=== PATIENT | female | born 1955 | race Caucasian/White ===

== ENCOUNTER 2019-03-17 20:07 | Observation (INO) ==
[2019-03-17] MEDS ORDERED: Ondansetron 4 MG/2 ML VIAL IVP STA (20:26)
[2019-03-17] MEDS ORDERED: 0.9 % Sodium Chloride 1,000 ML IVC STA (20:26)
[2019-03-17 21:11] LABS: Bilirubin,Urine Small (Negative); Blood,Urine Negative (Negative); Clarity,Urine Cloudy (Clear); Color,Urine Yellow (Yellow); Glucose,Urine (UA) Normal (Normal); Ketones,Urine Negative (Negative); Leukocyte Esterase,Urine Small (Negative); Nitrite,Urine Negative (Negative); PH,Urine 6.5 pH Units (5.0-8.0); Protein,Urine Negative (Neg-Trace); Specific Gravity,Urine 1.024 (1.010-1.025); Urobilinogen,Urine Normal (Normal)
[2019-03-17 21:14] LABS: Basophils # 0.1 K/mcL (0.0-0.2); Basophils % 0.7 %; Eosinophils # 0.3 K/mcL (0.0-0.6); Eosinophils % 3.8 %; Hematocrit 32.5 % (35.3-44.9); Hemoglobin 10.7 g/dL (11.5-15.4); Immature Granulocytes % 0.1 % (0-4); Lymphocytes # 1.2 K/mcL (0.6-4.6); Lymphocytes % 17.2 %; Mean Corpuscular HGB Conc 32.9 g/dL (31.6-35.5); Mean Corpuscular Volume 79.1 fL (83.0-100.0); Mean Platelet Volume 9.9 fL (9.4-12.4); Monocytes # 0.4 K/mcL (0.0-1.3); Monocytes % 5.5 %; Neutrophils # 5.2 K/mcL (1.6-8.9); Platelet Count 191 K/mcL (140-400); Red Blood Count 4.11 M/mcL (3.82-4.97); Red Cell Distribution Width 15.7 % (11.5-14.5); Segmented Neutrophils % 72.7 %; White Blood Count 7.1 K/mcL (4.3-11.1)
[2019-03-17 22:06] LABS: BUN/Creatinine Ratio 19 (6-26); Blood Urea Nitrogen 15 mg/dL (8-23); Calcium 8.3 mg/dL (8.6-10.3); Carbon Dioxide 24 mEq/L (23-29); Chloride 110 mEq/L (98-107); Glucose 103 mg/dL (70-105); Magnesium 1.5 mg/dL (1.6-2.6); Osmolality,Calculated 289 (280-300); Potassium 2.9 mEq/L (3.5-5.1); Sodium 139 mEq/L (136-145); Troponin I < 0.03 ng/mL (< 0.04); eGFR For African Americans > 60 (> 60); eGFR For Non-African Americans > 60 (> 60)
[2019-03-17 22:17] LABS: Hepatitis B Surface Antigen Nonreactive (Nonreactive)
[2019-03-17 22:38] LABS: Squamous Epithelial Cell,Urine Few per lpf (None-Few)
[2019-03-17 22:40] LABS: Amorphous Sediment,Urine Few (Few); WBC,Urine 0-3 per hpf (0-3)
[2019-03-17 22:46] LABS: Hepatitis A Antibody IgM Nonreactive (Nonreactive); Hepatitis B Core IgM Nonreactive (Nonreactive); Hepatitis C Virus Antibody Nonreactive (Nonreactive)
[2019-03-18] MEDS ORDERED: Naloxone 0.4 MG/ML INJ IVP PRN (01:06)
[2019-03-18] MEDS ORDERED: Ondansetron 4 MG/2 ML VIAL IVP PRN (01:06)
[2019-03-18] MEDS ORDERED: 0.9 % Sodium Chloride 1,000 ML IVC SCH ×2 (01:15→02:17)
[2019-03-18] MEDS: traZODone 50 MG TABLET PO SCH ×2 (02:03→21:50)
[2019-03-18] MEDS: SUMAtriptan succinate 50 MG TABLET PO PRN ×3 (02:51→20:37)
[2019-03-18] MEDS: *HR* Heparin 5,000 UNIT/ML VIAL SQ SCH ×3 (04:59→20:37)
[2019-03-18 06:31] LABS: Hematocrit 31.8 % (35.3-44.9); Hemoglobin 10.3 g/dL (11.5-15.4); Mean Corpuscular HGB Conc 32.4 g/dL (31.6-35.5); Mean Corpuscular Hemoglobin 25.6 pg (28.0-33.3); Mean Corpuscular Volume 78.9 fL (83.0-100.0); Mean Platelet Volume 10.9 fL (9.4-12.4); Platelet Count 181 K/mcL (140-400); Red Blood Count 4.03 M/mcL (3.82-4.97); Red Cell Distribution Width 15.8 % (11.5-14.5); White Blood Count 5.2 K/mcL (4.3-11.1)
[2019-03-18 06:53] LABS: BUN/Creatinine Ratio 19 (6-26); Blood Urea Nitrogen 13 mg/dL (8-23); Calcium 7.6 mg/dL (8.6-10.3); Carbon Dioxide 22 mEq/L (23-29); Chloride 110 mEq/L (98-107); Glucose 80 mg/dL (70-105); Osmolality,Calculated 289 (280-300); Potassium 3.8 mEq/L (3.5-5.1); Sodium 140 mEq/L (136-145); eGFR For African Americans > 60 (> 60); eGFR For Non-African Americans > 60 (> 60)
[2019-03-18] MEDS ORDERED: hydroCHLOROthiazide 25 MG TABLET PO SCH (09:00)
[2019-03-18] MEDS: Topiramate 25 MG TABLET PO SCH ×2 (09:01→20:37)
[2019-03-18] MEDS ORDERED: Sennosides 8.6 MG TABLET PO PRN (15:28)
[2019-03-18] MEDS: Nitrofurantoin (BID) 100 MG CAPSULE PO SCH (16:00)
[2019-03-18] MEDS: Sucralfate 1 GM TABLET PO SCH (17:24)
[2019-03-18] MEDS: predniSONE 20 MG TABLET PO SCH (17:24)
[2019-03-18] MEDS: hydrOXYzine pamoate 25 MG CAPSULE PO SCH (20:37)
[2019-03-18] MEDS ORDERED: NON-FORMULARY MEDICATION 1 EACH EACH (Omeprazole [Prilosec] 40 MG) PO SCH (21:00)
[2019-03-19] MEDS: *HR* Heparin 5,000 UNIT/ML VIAL SQ SCH ×2 (05:47→14:25)
[2019-03-19] MEDS: Nitrofurantoin (BID) 100 MG CAPSULE PO SCH ×2 (09:11→16:56)
[2019-03-19] MEDS: Sucralfate 1 GM TABLET PO SCH ×2 (09:12→16:56)
[2019-03-19] MEDS: hydrOXYzine pamoate 25 MG CAPSULE PO SCH ×3 (09:12→20:54)
[2019-03-19] MEDS: Topiramate 25 MG TABLET PO SCH ×2 (09:13→20:53)
[2019-03-19] MEDS: Multivit/Ca/Min/Fe/FA 1 TAB TABLET PO SCH (09:13)
[2019-03-19] MEDS: predniSONE 20 MG TABLET PO SCH (09:13)
[2019-03-19] MEDS: SUMAtriptan succinate 50 MG TABLET PO PRN (14:31)
[2019-03-19] MEDS: traZODone 50 MG TABLET PO SCH (20:54)
[2019-03-20 06:12] LABS: Blood Urea Nitrogen 14 mg/dL (8-23); Calcium 8.5 mg/dL (8.6-10.3); Carbon Dioxide 23 mEq/L (23-29); Chloride 110 mEq/L (98-107); Glucose 110 mg/dL (70-105); Magnesium 1.6 mg/dL (1.6-2.6); Osmolality,Calculated 293 (280-300); Potassium 3.8 mEq/L (3.5-5.1); Sodium 141 mEq/L (136-145)
[2019-03-20 06:28] LABS: BUN/Creatinine Ratio 19 (6-26); eGFR For African Americans > 60 (> 60); eGFR For Non-African Americans > 60 (> 60)
[2019-03-20] MEDS: Nitrofurantoin (BID) 100 MG CAPSULE PO SCH (08:33)
[2019-03-20] MEDS: predniSONE 20 MG TABLET PO SCH (08:33)
[2019-03-20] MEDS: Multivit/Ca/Min/Fe/FA 1 TAB TABLET PO SCH (08:33)
[2019-03-20] MEDS: Topiramate 25 MG TABLET PO SCH (08:33)
[2019-03-20] MEDS: Sucralfate 1 GM TABLET PO SCH (08:34)
[2019-03-20] MEDS: hydrOXYzine pamoate 25 MG CAPSULE PO SCH (08:34)
[2019-03-20 11:46] VITALS: BP 149/71
[2019-03-20] MEDS: SUMAtriptan succinate 50 MG TABLET PO PRN (12:42)
== END 2019-03-20 13:42 | disposition home or self-care (01) ==
LOC: 3ANU 20:07 → EMEROOARM 20:07 → SUATTDRO 23:55 → 3ANU 03-18 00:27
PROVIDERS: ADMIT Internal Medicine; ATTEND Internal Medicine

== ENCOUNTER 2019-04-30 15:23 | Observation (INO) ==
[2019-04-30] MEDS ORDERED: SODIUM CHLORIDE/NAHCO3/KCL/PEG 4,000 ML SOLN.RECON PO ONE (17:07)
[2019-04-30] MEDS: 0.9 % Sodium Chloride 1,000 ML IVC SCH (18:22)
[2019-04-30] MEDS ORDERED: hydrOXYzine pamoate 25 MG CAPSULE PO PRN (18:42)
[2019-04-30] MEDS ORDERED: tiZANidine 4 MG TABLET PO PRN (18:42)
[2019-04-30] MEDS ORDERED: traZODone 50 MG TABLET PO SCH (21:00)
[2019-05-01] MEDS: 0.9 % Sodium Chloride 1,000 ML IVC SCH (04:48)
[2019-05-01] MEDS ORDERED: Topiramate 25 MG TABLET PO SCH (09:00)
[2019-05-01] MEDS ORDERED: NON-FORMULARY MEDICATION 1 EACH EACH (Prednisone [Prednisone] 10 MG) PO SCH (09:00)
[2019-05-01] MEDS: Sucralfate 1 GM TABLET PO SCH ×2 (10:29→16:59)
[2019-05-01] MEDS ORDERED: *HR* Propofol 200 MG/20 ML VIAL IVP ONE (12:43)
[2019-05-01] MEDS ORDERED: Lidocaine -MPF 2% 2 ML VIAL ONE (12:43)
[2019-05-01] MEDS ORDERED: Propofol 500 MG/50 ML INFUS..BTL ONE (12:43)
[2019-05-01 15:32] VITALS: BP 160/70
== END 2019-05-01 19:30 | disposition home or self-care (01) ==
LOC: 3BNU 15:23 → SAMDAY 15:23 → 3BNU 16:18
PROVIDERS: ADMIT Internal Medicine; ATTEND Internal Medicine
PROC: ENDOEBX (2019-05-01 13:00)